=== PATIENT | female | born 1995 ===

== ENCOUNTER → 2017-03-27 | Outpatient (REF) | LOC: WSOH 16:08 | DX: Z02.89 Encounter for other administrative examinations (principal) ==

== ENCOUNTER → 2017-07-23 | Outpatient (REF) | LOC: WSOH 15:30 | DX: Z02.89 Encounter for other administrative examinations (principal) ==

== ENCOUNTER → 2018-02-23 | Outpatient (REF) | LOC: WSPT 12:39 | DX: Z02.1 Encounter for pre-employment examination (principal) ==

== ENCOUNTER → 2019-03-21 | Outpatient (REF) | LOC: WSPT 13:06 | DX: Z02.1 Encounter for pre-employment examination (principal) ==